=== PATIENT | female | born 1980 | race African-American/Black ===

== ENCOUNTER → 2018-07-21 | Outpatient (CLI) | payer BC ==
[2018-07-23 09:39] LABS: HEPATITIS C VIRUS AB <0.1 s/co ratio (0.0-0.9)
[2018-07-23 13:51] LABS: HEPATITS B SURFACE ANTIGEN Negative (Negative)
== END ==
LOC: LAB 15:09
PROVIDERS: ATTEND Obstetrics & Gynecology
DX: Z12.4 Encounter for screening for malignant neoplasm of cervix (principal); Z11.51 Encounter for screening for human papillomavirus (HPV); Z11.4 Encounter for screening for human immunodeficiency virus [HIV]; Z11.3 Encounter for screening for infections with a predominantly sexual mode of transmission; Z11.59 Encounter for screening for other viral diseases
CPT/HCPCS: 36415; 86592; 86701; 86803; 86804; 87340; 87624; 88175

== ENCOUNTER 2018-07-31 05:28 | Emergency (ER) | payer BC ==
--- NOTE | 2018-07-31 08:37 | RADIOLOGY REPORT (SQ) ---
EXAM DESCRIPTION: SOFT TISSUE NECK COMPLETED DATE/TIME: 07/31/2018 8:21 am REASON FOR STUDY: right sided neck pain and pain swallowing COMPARISON: None. NUMBER OF VIEWS: Two views. TECHNIQUE: AP and lateral radiographic image of the soft tissues of the neck. LIMITATIONS: None. FINDINGS: EPIGLOTTIS: Normal. Contour normal. Aryepiglottic folds normal. PREVERTEBRAL SOFT TISSUES: Normal. No soft tissue swelling. SUBGLOTTIC AREA: Normal. No narrowing. RETROPHARYNGEAL SPACE: Normal. No soft tissue masses. BONES: No significant findings. LUNG APICES: Normal. OTHER: No radiopaque foreign body. No other significant finding. IMPRESSION: NEGATIVE STUDY OF THE SOFT TISSUES OF THE NECK. TECHNICAL DOCUMENTATION: JOB ID: [id number] [employer]- All Rights Reserved Reading location - IP/workstation name: [email or web address]
[2018-07-31 08:56] VITALS: BP 145/85
--- NOTE | 2018-07-31 08:58 | ER Document Report ---
ED ENT - General Chief Complaint: Sore Throat Stated Complaint: SORE THROAT Time Seen by Provider: 07/31/18 07:44 Primary Care Provider: TERESITA ROSE MD [Primary Care Provider] - Follow up as needed Notes: 38-year-old female patient emergency part chief complaint of right-sided throat pain. Patient states that she was treated recently with an antibiotic for possible infection. Pain is persisted on the right side. Some swelling noted under the right jawline and anterior neck. Some pain with swallowing. No other symptoms at this time. No fever. No rash. No headache. No neck stiffness. No shortness of breath. TRAVEL OUTSIDE OF THE [place] IN LAST 30 DAYS: No - HPI Patient complains to provider of: Throat problem Onset/Duration: Gradual, Constant Severity: Moderate Pain Level: 2 - Related Data Allergies/Adverse Reactions: Sulfa (Sulfonamide Antibiotics) Allergy (Verified 07/31/18 05:29) Past Medical History - General Information source: Patient - Social History Smoking Status: Never Smoker Chew tobacco use (# tins/day): No Drug Abuse: None Lives with: Family Family History: Reviewed & Not Pertinent Patient has suicidal ideation: No Patient has homicidal ideation: No Renal/ Medical History: Denies: Hx Peritoneal Dialysis Past Surgical History: Reports: Hx Appendectomy, Hx Section Review of Systems - Review of Systems Constitutional: denies: Fever, Malaise, Other EENT: Throat pain, Difficulty swallowing. denies: Eye pain, Blurred vision, Mouth pain Cardiovascular: denies: Chest pain, Palpitations, Heart racing Respiratory: denies: Cough, Short of breath, Wheezing Gastrointestinal: denies: Abdominal pain, Diarrhea, Nausea Musculoskeletal: denies: Back pain, Joint pain, Joint swelling, Muscle stiffness Skin: denies: Dryness, Lesions, Lumps, Rash Physical Exam - Vital signs Vitals: Temp Pulse Resp BP Pulse Ox 97.9 F 72 18 133/90 H 98 07/31/18 05:32 07/31/18 05:32 07/31/18 05:32 07/31/18 05:32 07/31/18 05:32 Interpretation: Normal - General General appearance: Appears well, Alert - HEENT Ears: Normal Tympanic membrane: Normal Mucous membranes: Normal Pharynx: Normal Neck: Lymphadenopathy - Lymphadenopathy right anterior chain.. No: Thyromegally - Respiratory Respiratory status: No respiratory distress Chest status: Nontender Breath sounds: Normal Chest palpation: Normal - Cardiovascular Rhythm: Regular Heart sounds: Normal auscultation Murmur: No - Extremities General upper extremity: Normal inspection, Nontender, Normal color, Normal ROM, Normal temperature General lower extremity: Normal inspection, Nontender, Normal color, Normal ROM, Normal temperature, Normal weight bearing. No: Robin's sign - Neurological Neuro grossly intact: Yes Cognition: Normal Orientation: AAOx4 Celi Coma Scale Eye Opening: Spontaneous [place] Coma Scale Verbal: Oriented [place] Coma Scale Motor: Obeys Commands Celi Coma Scale Total: 15 Speech: Normal Motor strength normal: LUE, RUE, LLE, RLE Sensory: Normal Course - Re-evaluation Re-evalutation: 07/31/18 08:55 Laboratory 07/31/18 06:25 Group A Strep Rapid NEGATIVE Soft Tissue Neck X-Ray 07/31/18 07:54 IMPRESSION: NEGATIVE STUDY OF THE SOFT TISSUES OF THE NECK. The x-ray of the neck is unremarkable. Physical exam fairly unremarkable. Strep is negative. She has this persistent pain but only on the right side and in the back of her throat. We talked about the pluses and minuses of doing a CT scan. At this time I would like to do a extended course of antibiotics. We will start her on some Augmentin and would like to try this for 10 days to see if this will clear it up. Patient is comfortable with this plan. She realizes that if symptoms are getting worse over the next 24-48 hours she should return or be seen by her regular doctor for repeat evaluation and potentially doing a CT scan of the neck. Will discharge at this time in stable condition. - Vital Signs Vital signs: Temp Pulse Resp BP Pulse Ox 98.4 F 61 16 145/85 H 100 07/31/18 08:55 07/31/18 08:55 07/31/18 08:55 07/31/18 08:55 07/31/18 08:55 Discharge - Discharge Clinical Impression: Pharyngitis Qualifiers: Pharyngitis/tonsillitis etiology: unspecified etiology Qualified Code(s): J02.9 - Acute pharyngitis, unspecified Condition: Good Disposition: HOME, SELF-CARE Instructions: Sore Throat ([facility]) Additional Instructions: At this time we are going to treat you with an extended course of some Augmentin. Please take it with food. If your symptoms persist after completing the full course of antibiotics it may be beneficial to have be seen by ENT or also to get a CT scan of the neck. In the event that your symptoms are getting worse after 24-48 hours of antibiotics and you feel like you are having a difficulty with swallowing, shortness of breath or any other concerns please return immediately for repeat evaluation. Prescriptions: Amox Tr/Potassium Clavulanate [Augmentin 875-125 mg Tablet] 1 tab PO BID 10 Days #20 tablet Forms: Return to Work Referrals: TERESITA ROSE MD [Primary Care Provider] - Follow up as needed
== END 2018-07-31 09:15 | disposition home or self-care (01) ==
LOC: ER 05:28
DX: J02.9 Acute pharyngitis, unspecified (principal); Z88.2 Allergy status to sulfonamides
CPT/HCPCS: 70360; 87070; 87880; 99283

== ENCOUNTER → 2018-08-01 | Outpatient (CLI) | payer BC ==
--- NOTE | 2018-08-01 10:19 | RADIOLOGY REPORT (SQ) ---
EXAM DESCRIPTION: U/S NON-OB PELVIS W/O DOP COMPLETED DATE/TIME: 08/01/2018 9:58 am REASON FOR STUDY: IRON DEFICIENCY ANEMIA (D50.9) D50.9 IRON DEFICIENCY ANEMIA, UNSPECIFIED COMPARISON: None. TECHNIQUE: Dynamic and static grayscale images acquired of the pelvis via transabdominal approach an d recorded on PACS. Additional selected color Doppler and spectral images recorded. LIMITATIONS: None. FINDINGS: UTERUS: Echogenic region with associated color flow in the posterior myometrium measuring up to 3 cm. Probable fibroid. ENDOMETRIAL STRIPE: No focal or generalized thickening. No masses. CERVIX: No nabothian cysts. RIGHT OVARY AND DOPPLER: Ovary not visualized. LEFT OVARY AND DOPPLER: Normal size. No worrisome masses. 2.7 cm simple appearing cyst. Normal vitaliy rial vascular flow without evidence for torsion. FREE FLUID: None noted. OTHER: No other significant finding. MEASUREMENTS: UTERUS: 9.5 x 4.8 x 4.1 cm ENDOMETRIAL STRIPE: 7 mm RIGHT OVARY: Not visualized. LEFT OVARY: 3.2 x 2.6 x 2.5 cm IMPRESSION: 1. Probable fibroid uterus. 2. Incidental 2 cm simple appearing left ovarian cyst, doubtful clinical significance in a patient of this age without pelvic pain. Followup of asymptomatic benign ovarian cysts detected by ultrasound in PREMENOPAUSAL patients Simple cyst: *? 5 cm: no followup Note: If cyst is clinically symptomatic or otherwise concerning, other followup may be warranted. Based on recommendations of the Society for Radiologists in Ultrasound Consensus Conference Statement 2010 on management of asymptomatic ovarian and other adnexal cysts imaged at ultrasound. TECHNICAL DOCUMENTATION: JOB ID: [id number] [employer]- All Rights Reserved Rev-09/06 Reading location - IP/workstation name: [email or web address]
== END ==
LOC: RAD 09:24
PROVIDERS: ATTEND Internal Medicine
DX: D50.9 Iron deficiency anemia, unspecified (principal)
CPT/HCPCS: 76856

== ENCOUNTER 2019-06-30 23:32 | Emergency (ER) | payer BC ==
--- NOTE | 2019-06-30 23:42 | ER Document Report ---
ED Medical Screen (RME) - General Stated Complaint: POSSIBLE ABSCESS Time Seen by Provider: 06/30/19 23:38 Primary Care Provider: MYRA AL MD [Primary Care Provider] - Follow up as needed TRAVEL OUTSIDE OF THE [place] IN LAST 30 DAYS: No - HPI Notes: 06/30/19 23:41 Patient is a 39-year-old female who presents complaining of possible abscess to her right axilla that is been present for the past couple days. She has noticed swelling and pain. No fever. I have treated and performed a rapid initial assessment of this patient. A comprehensive ED assessment and evaluation of the patient, analysis of test results and completion of medical decision making process will be conducted by additional ED providers. PHYSICAL EXAMINATION: GENERAL: Well-appearing, well-nourished and in no acute distress. A&Ox4. Answers questions appropriately. Right axilla: There is an indurated area with possible mild fluctuance noted. There is tenderness. No streaks. - Related Data Allergies/Adverse Reactions: Sulfa (Sulfonamide Antibiotics) Allergy (Verified 07/31/18 05:29) Past Medical History Renal/ Medical History: Denies: Hx Peritoneal Dialysis Past Surgical History: Reports: Hx Appendectomy, Hx Section Doctor's Discharge - Discharge Referrals: MYRA AL MD [Primary Care Provider] - Follow up as needed
[2019-07-01] MEDS ORDERED: LIDOCAINE 4% CREAM 5 GM TUBE TP ONE (00:17)
[2019-07-01] MEDS ORDERED: DOXYCYCLINE HYCLATE 100 MG TABLET PO ONE (01:06)
[2019-07-01] MEDS ORDERED: HYDROCODONE/ACETAMINOPHEN 5-325 MG (6 TAB/ER DISP) PO PRN (01:06)
--- NOTE | 2019-07-01 01:07 | ER Document Report ---
ED Skin Rash/Insect Bite/Abscs - General Chief Complaint: Abscess Stated Complaint: POSSIBLE ABSCESS Time Seen by Provider: 06/30/19 23:38 Notes: Patient is a 39-year-old female that comes to the emergency department for chief complaint of a painful, red, swollen area in her right armpit area. This started about 1.5 days ago. She denies history of abscesses. Her tetanus is up-to-date. She denies history of IV drug abuse. She does work in a hospital setting. She denies any daily medications. She denies . TRAVEL OUTSIDE OF THE [place] IN LAST 30 DAYS: No - Related Data Allergies/Adverse Reactions: Sulfa (Sulfonamide Antibiotics) Allergy (Verified 07/31/18 05:29) Past Medical History - General Information source: Patient - Social History Smoking Status: Never Smoker Chew tobacco use (# tins/day): No Frequency of alcohol use: None Drug Abuse: None Lives with: Family Family History: Reviewed & Not Pertinent Patient has suicidal ideation: No Patient has homicidal ideation: No Renal/ Medical History: Denies: Hx Peritoneal Dialysis Past Surgical History: Reports: Hx Appendectomy, Hx Section - Immunizations Immunizations up to date: Yes Hx Diphtheria, Pertussis, Tetanus Vaccination: Yes Review of Systems - Review of Systems Constitutional: No symptoms reported EENT: No symptoms reported Cardiovascular: No symptoms reported Respiratory: No symptoms reported Gastrointestinal: No symptoms reported Genitourinary: No symptoms reported Female Genitourinary: No symptoms reported Musculoskeletal: No symptoms reported Skin: See HPI Hematologic/Lymphatic: No symptoms reported Neurological/Psychological: No symptoms reported Physical Exam - Vital signs Vitals: Temp Pulse Resp BP Pulse Ox 98.3 F 71 18 163/75 H 100 06/30/19 23:41 06/30/19 23:41 06/30/19 23:41 06/30/19 23:41 06/30/19 23:41 - Notes Notes: GENERAL: Alert, interacts well. Anxious but not in distress HEAD: Normocephalic, atraumatic. EYES: Pupils equal, round, and reactive to light. Extraocular movements intact. ENT: Oral mucosa moist, tongue midline. Oropharynx unremarkable. Airway patent. LUNGS: Clear to auscultation bilaterally, no wheezes, rales, or rhonchi. No respiratory distress. HEART: Regular rate and rhythm. No murmur ABDOMEN: Soft, non-tender. Non-distended. EXTREMITIES: Moves all 4 extremities spontaneously. No edema, normal radial and dorsalis pedis pulses bilaterally. No cyanosis. BACK: no cervical, thoracic, lumbar midline tenderness. No saddle anesthesia, normal distal neurovascular exam. Moves all extremities in full range of motion. NEUROLOGICAL: Alert and oriented x3. Normal speech. Cranial nerves II through XII grossly intact. PSYCH: Anxious SKIN: There is tenderness and erythema to the mid axillary area in the right axillary space, there is mild induration but no noted fluctuance. There is no obvious abscess head, there is no nearby lymphadenopathy. Otherwise unremarkable. Course - Re-evaluation Re-evalutation: There is some warmth, tenderness, borderline cellulitis in the right axillary area. There is some small area of induration but no noted fluctuance. I cannot clearly see an abscess. Bedside ultrasound was performed and there was noted to be a slightly deeper abscess that is not yet at the surface, this was quite small in size. Discussed with patient. Recommended incision and drainage. Decision was made to apply LMX, afterwards cleaned thoroughly and using the bedside ultrasound guidance I was able to enter the abscess with an 18-gauge needle and drain out 1 cc of purulent drainage. I could not get any additional drainage out. No bloody drainage was noted. Area was cleaned, dressed. Patient was started on antibiotics. I discussed care, monitoring, close follow- up, and return precautions. Patient states appreciation and agreement. - Vital Signs Vital signs: Temp Pulse Resp BP Pulse Ox 97.9 F 61 16 139/74 H 100 07/01/19 02:21 07/01/19 02:21 07/01/19 02:21 07/01/19 02:21 07/01/19 02:21 Procedures - Incision and Drainage Right axillary space Type: Single Anesthetic type: Other - LMX Blade size: Other - 18-gauge needle I&D procedure: Shurclens applied, Sterile dressing applied Incision Method: Incision made with needle Amount/type of drainage: About 1 cc of purulent drainage Discharge - Discharge Clinical Impression: Abscess Condition: Stable Disposition: HOME, SELF-CARE Additional Instructions: The abscess has been drained, this is a small abscess that is slightly deeper under the skin at this time. Keep the area clean, clean with soap and water, keep absorbent dressing over the area. Take antibiotics as prescribed to completion. Follow-up with primary care. Return if this develops/worsens including increased swelling, spreading redness, fever, or any other concerning or worsening symptoms. Prescriptions: Doxycycline Hyclate [Vibramycin 100 mg Tablet] 100 mg PO BID 7 Days #14 tablet Forms: Return to Work
[2019-07-01 02:22] VITALS: BP 139/74
== END 2019-07-01 02:24 | disposition home or self-care (01) ==
LOC: ER 23:32
DX: L02.91 Cutaneous abscess, unspecified (principal); Z88.2 Allergy status to sulfonamides
CPT/HCPCS: 99283; 10060; J3490

== ENCOUNTER 2019-07-02 18:07 | Emergency (ER) | payer BC ==
--- NOTE | 2019-07-02 19:48 | ER Document Report ---
HPI - HPI Time Seen by Provider: 07/02/19 19:39 Onset: Other - This is a 39-year-old female who was here 2 days ago for abscess I&D of her right axilla area she had a needle aspiration performed the area is tender does not feel fluctuant at this point in time she is currently taking the antibiotics does not feel excessively warm. Onset/Duration: Gradual Quality of pain: Burning Severity: Moderate Pain Level: 3 Associated Symptoms: None Exacerbated by: Denies Relieved by: Denies Similar symptoms previously: Yes Recently seen / treated by doctor: Yes - REPRODUCTIVE Reproductive: DENIES: : Past Medical History - General Information source: Patient - Social History Smoking Status: Current Every Day Smoker Family History: Reviewed & Not Pertinent Patient has suicidal ideation: No Patient has homicidal ideation: No Renal/ Medical History: Denies: Hx Peritoneal Dialysis Past Surgical History: Reports: Hx Appendectomy, Hx Section - Immunizations Immunizations up to date: Yes Hx Diphtheria, Pertussis, Tetanus Vaccination: Yes Vertical Provider Document - CONSTITUTIONAL Agree With Documented VS: Yes - INFECTION CONTROL TRAVEL OUTSIDE OF THE [place] IN LAST 30 DAYS: No - HEENT HEENT: Atraumatic Course - Vital Signs Vital signs: Temp Pulse Resp BP Pulse Ox 98.7 F 71 16 136/83 H 100 07/02/19 18:27 07/02/19 18:27 07/02/19 18:27 07/02/19 18:27 07/02/19 18:27 - Transfer of Care Notes: 07/02/19 19:46 This patient had an abscess I&D performed with a needle biopsy 2 days ago in the evening the area is tender however it is not erythemic it is not fluctuant does look like it is healing a little bit better she was advised to do warm compr esses 4-5 times a day follow-up here in 4 to 5 days at which point in time if it was still fluctuant we would be happy to go ahead and open that back up told her my fear right now would be that I was opening up an area that was simply inflamed and not infected. Discharge - Discharge Clinical Impression: Encounter for wound re-check Condition: Good Disposition: HOME, SELF-CARE Instructions: Post Incision and Drainage Additional Instructions: Abscess You have an abscess (boil). This a pus-forming infection, usually due to staph. Some boils may be left to drain on their own, but most require lancing. From the time the tender lump first appears, it may be three or four days before the abscess is ready to joel. Local heat and rest help at this stage of treatment. An antibiotic may prevent spread of the infection. Once the abscess is opened, packing may be placed into it. This is done so pus is not sealed inside by premature closure of the cavity. The packing will be removed at your follow-up visit or you may be advised to remove it yourself at home. Sometimes this packing must be replaced a few times during healing. The wound will heal with surprisingly little scar. Depending on the size and location of an abscess, healing can take one to four weeks. You may shower and wash the area around the incision site two or three times a day. Antibiotics may be prescribed, but are usually not necessary after an abscess has been drained. If you develop fever, chilling, worsening pain, or increasing swelling in the area, call the doctor or return immediately.
[2019-07-02 19:50] VITALS: BP 140/84
[2019-07-02] MEDS ORDERED: HYDROCODONE/ACETAMINOPHEN 5-325 MG (6 TAB/ER DISP) PO PRN (20:31)
== END 2019-07-02 20:30 | disposition home or self-care (01) ==
LOC: ER 18:07
DX: L02.411 Cutaneous abscess of right axilla (principal); Z98.890 Other specified postprocedural states; F17.200 Nicotine dependence, unspecified, uncomplicated
CPT/HCPCS: 99282

== ENCOUNTER 2019-07-04 19:48 | Emergency (ER) | payer BC ==
[2019-07-04 19:55] VITALS: BP 153/90
[2019-07-04] MEDS ORDERED: LIDOCAINE 1% INJ-PF (10 MG/ML) 30 ML SDV INJ ONE (19:58)
--- NOTE | 2019-07-04 20:11 | ER Document Report ---
HPI - HPI Time Seen by Provider: 07/04/19 19:58 Onset: Other - This is a 39-year-old female presented to the emergency room today with an abscess to her right axillary area. She was here 2 days ago for reevaluation after a needle aspiration. She has some fluctuance to the center area of that today and we are going to do an I&D of the affected area. Pain Level: 3 Associated Symptoms: None Exacerbated by: Denies - CONSTITUTIONAL Constitutional: DENIES: Chills - REPRODUCTIVE Reproductive: DENIES: : Past Medical History - Social History Smoking Status: Current Some Day Smoker Cigarette use (# per day): No Chew tobacco use (# tins/day): No Smoking Education Provided: No Family History: Reviewed & Not Pertinent Patient has suicidal ideation: No Patient has homicidal ideation: No Renal/ Medical History: Denies: Hx Peritoneal Dialysis Past Surgical History: Reports: Hx Appendectomy, Hx Section - Immunizations Immunizations up to date: Yes Hx Diphtheria, Pertussis, Tetanus Vaccination: Yes Vertical Provider Document - CONSTITUTIONAL Agree With Documented VS: Yes - INFECTION CONTROL TRAVEL OUTSIDE OF THE [place] IN LAST 30 DAYS: No Course - Vital Signs Vital signs: Temp Pulse Resp BP Pulse Ox 98.1 F 72 16 153/90 H 100 07/04/19 19:53 07/04/19 19:53 07/04/19 19:53 07/04/19 19:53 07/04/19 19:53 Procedures - Incision and Drainage Right Arm Type: Simple Anesthetic type: 1% Lidocaine Blade size: 11 I&D procedure: Betadine prep applied Incision Method: Incision made by scalpel Amount/type of drainage: 10 cc Discharge - Discharge Clinical Impression: Abscess Disposition: HOME, SELF-CARE Instructions: Abscess ([facility]), Post Incision and Drainage Additional Instructions: Warm compresses 4-5 times a day. Follow-up with myself tomorrow here in the department. Return for any change worsening condition. Referrals: TERESITA ROSE MD [Primary Care Provider] - Follow up as needed
== END 2019-07-04 20:39 | disposition home or self-care (01) ==
LOC: ER 19:48
DX: L02.411 Cutaneous abscess of right axilla (principal); F17.200 Nicotine dependence, unspecified, uncomplicated
CPT/HCPCS: 99283

== ENCOUNTER 2019-09-27 19:20 | Emergency (ER) | payer BC ==
[2019-09-27 19:26] VITALS: BP 163/88
--- NOTE | 2019-09-27 19:43 | ER Document Report ---
HPI - HPI Patient complains to provider of: arm tender Time Seen by Provider: 09/27/19 19:40 Pain Level: 3 Context: This is a 39-year-old female presents to the emergency room today stating that she had some tenderness to the lateral aspect of her right arm and she was concerned that she might be getting a folliculitis again as she was treated here by myself about 2 3 months ago with an abscess to the axillary area. On the same arm Associated Symptoms: None Exacerbated by: Denies Relieved by: Denies Similar symptoms previously: Yes Recently seen / treated by doctor: No - REPRODUCTIVE Reproductive: DENIES: : Past Medical History - General Information source: Patient - Social History Smoking Status: Current Some Day Smoker Cigarette use (# per day): No Chew tobacco use (# tins/day): No Smoking Education Provided: No Frequency of alcohol use: None Drug Abuse: None Family History: Reviewed & Not Pertinent Patient has homicidal ideation: No Renal/ Medical History: Denies: Hx Peritoneal Dialysis Past Surgical History: Reports: Hx Appendectomy, Hx Section - Immunizations Immunizations up to date: Yes Hx Diphtheria, Pertussis, Tetanus Vaccination: Yes Vertical Provider Document - CONSTITUTIONAL Agree With Documented VS: Yes - INFECTION CONTROL TRAVEL OUTSIDE OF THE [place] IN LAST 30 DAYS: No - HEENT HEENT: Atraumatic, Conjuctival Injection, Normocephalic, PERRLA - NECK Neck: Normal Inspection - RESPIRATORY Respiratory: Breath Sounds Normal, No Respiratory Distress - CARDIOVASCULAR Cardiovascular: Regular Rate, Regular Rhythm - GI/ABDOMEN Gastrointestinal: Abdomen Soft, Abdomen Non-Tender - REPRODUCTIVE Female Genitalia: Normal Inspection - BACK Back: Normal Inspection - MUSCULOSKELETAL/EXTREMETIES Musculoskeletal/Extremeties: MAEW - NEURO Level of Consciousness: Awake, Alert - DERM Integumentary: Warm Course - Re-evaluation Re-evalutation: 09/27/19 19:41 Upon evaluation this patient does not have tenderness at the axillary area at all her pain is superior to the deltoid area with radiation back to the scapular area and is more reminiscent of a muscle strain me and the patient had a long conversation about that I did tell her that I would be happy to give her some medicine to help her with some discomfort as well as antispasmodic - Vital Signs Vital signs: Temp Pulse Resp BP Pulse Ox 98.8 F 73 20 163/88 H 100 09/27/19 19:26 09/27/19 19:24 09/27/19 19:24 09/27/19 19:24 09/27/19 19:24 Discharge - Discharge Clinical Impression: Torticollis Disposition: HOME, SELF-CARE Additional Instructions: Warm compresses 4-5 times a day. Medication as prescribed. Follow-up PMD in 2 to 3 days. Patient may certainly return to follow-up with myself I will be here again on . Prescriptions: Ibuprofen [Motrin 600 Mg Tablet] 600 mg PO TID #15 tablet Methocarbamol [Robaxin 750 mg Tablet] 750 mg PO ASDIR PRN #40 tablet PRN Reason: Referrals: TERESITA ROSE MD [Primary Care Provider] - Follow up as needed
== END 2019-09-27 19:45 | disposition home or self-care (01) ==
LOC: ER 19:20
DX: M43.6 Torticollis (principal); M79.601 Pain in right arm; F17.200 Nicotine dependence, unspecified, uncomplicated
CPT/HCPCS: 99283

== ENCOUNTER → 2019-11-30 | Outpatient (CLI) | payer BC ==
--- NOTE | 2019-11-30 17:18 | RADIOLOGY REPORT (SQ) ---
EXAM DESCRIPTION: L SPINE W/FLEX/EXT IMAGES COMPLETED DATE/TIME: 11/30/2019 4:27 pm REASON FOR STUDY: M51.36 OTHER INTERVERTEBRAL DISC DEGENERATION, LUMBAR REGION M51.36 OTHER INTERVE RTEBRAL DISC DEGENERATION, LUMBAR REGION COMPARISON: None. NUMBER OF VIEWS: 7 views TECHNIQUE: AP and oblique views were obtained. Lateral views were obtained in neutral, flexion, and extension. And a coned down lateral view was obtained. LIMITATIONS: None. FINDINGS: MINERALIZATION: Normal. SEGMENTATION: Normal. No transitional anatomy. ALIGNMENT: Mild dextroscoliosis. FLEXION/EXTENSION: No instability. VERTEBRAE: Maintained height. No fracture or worrisome bone lesion. DISCS: The disc spaces are fairly well maintained. POSTERIOR ELEMENTS: Pedicles and facets are intact. No pars defect or posterior arch defects. HARDWARE: None in the spine. OTHER: No other significant finding. IMPRESSION: Mild scoliosis. No instability on flexion/ extension. TECHNICAL DOCUMENTATION: JOB ID: [id number] 2010 [employer]- All Rights Reserved Reading location - IP/workstation name: [email or web address]
== END ==
LOC: RAD 15:53
PROVIDERS: ATTEND Nurse Practitioner Psychiatric/Mental Health
DX: M51.36 Other intervertebral disc degeneration, lumbar region (principal)
CPT/HCPCS: 72114